=== PATIENT | male | born 1940 | race Caucasian/White ===

== ENCOUNTER 2022-01-23 13:17 | Emergency (ER) | payer MEDICARE, SELFPAY ==
[2022-01-23] VITALS (7 sets, daily range): BP systolic 96–150; BP diastolic 58–77; PULSE 63–70; RESP 11–18; TEMP 36.4–36.6; O2SAT 96–98; BMI 33.5
--- NOTE | 2022-01-23 13:31 | ECG_ITS ---
Test Reason : syncopy Blood Pressure : / mmHG Vent. Rate : 064 BPM Atrial Rate : 064 BPM P-R Int : 176 ms QRS Dur : 092 ms QT Int : 396 ms P-R-T Axes : 052 -31 003 degrees QTc Int : 408 ms Normal sinus rhythm Left axis deviation Abnormal ECG No previous ECGs available Referred By: Patricia Girard Electronically Signed By:Aldo Ascencio
--- NOTE | 2022-01-23 13:43 | ED_ITS ---
HPI - Syncope General Chief Complaint: Syncope Stated Complaint: LIGHT HEADED AFTER BICYCLE RIDE,FAINTED W/EMS Time Seen by Provider: 01/23/22 13:30 Source: patient and EMS Mode of arrival: EMS Limitations: no limitations History of Present Illness HPI narrative: 81 y/o male with history of DM on insulin, cataracts s/p recent surgery who presents to the ER via EMS with lightheadedness, dizziness and a brief syncopal episode after biking 23 miles today. He states he bikes 25-30 miles 3 times per week. He syncopized once 3 years ago in a similar circumstance but none since. He states he stops and takes a break every 5 miles and drinks fluids. Today he ate his usual breakfast before his ride but didn't eat lunch, which is normal for him. Glucose was 170 this morning. He states with about 1.5 miles to go be s tarted to feel lightheaded. When he completed his ride he got back to the car, was lightheaded, pale and dizzy. He laid down and his friends were pouring cold water on him and lifting his legs up. EMS was called and he was feeling better when they got there. He was going to decline transfer but when he sat up he syncopized. En route to the hospital he was nauseous. No chest pain, SOB, palpitations. He has never seen a chief payroll clerk and he has never had an ultrasound of his heart. MD complaint: loss of consciousness and felt faint Onset (ago): minute(s) -: minutes(s) Prodromal symptoms: lightheaded, diaphoresis and nausea/vomiting Witnessed: Yes - by EMS Context: during exertion Injuries sustained associated with event: none Current symptoms: back to baseline Treatments prior to arrival: IV fluids Related Data Home Medications Medication Instructions Recorded Confirmed ascorbic acid (vitamin C) 500 mg 500 mg PO DAILY 01/23/22 01/23/22 tablet (Vitamin C) bromfenac 0.07 % eye drops 1 drp ophthalmic (eye) BEDTIME 01/23/22 01/23/22 (Prolensa) calcium citrate 200 mg (950 mg) 400 mg PO BID 01/23/22 01/23/22 tablet gabapentin 300 mg capsule 1 cap PO TID 01/23/22 01/23/22 insulin glargine 100 unit/mL (3 42 unit subcut BEDTIME 01/23/22 01/23/22 mL) subcutaneous pen (Lantus Solostar U-100 Insulin) insulin lispro 100 unit/mL 0 sliding scale dose subcut QIDACHS 01/23/22 01/23/22 subcutaneous pen (Humalog KwikPen (U-100) Insulin) irbesartan 150 mg tablet 1 tab PO DAILY@1800 01/23/22 01/23/22 metformin 500 mg tablet 2 tab PO BID 01/23/22 01/23/22 omega 9-cvo-hgg-fish oil 1,200 mg 1 cap PO DAILY 01/23/22 01/23/22 (144 mg-216 mg) capsule (Fish Oil) omeprazole 20 mg capsule,delayed 1 cap PO DAILY 01/23/22 01/23/22 release simvastatin 40 mg tablet 1 tab PO BEDTIME 01/23/22 01/23/22 Allergies Allergy/AdvReac Type Severity Reaction Status Date / Time Unable to Assess Allergy Unverified 01/23/22 13:31 Review of Systems Review of Systems: Constitutional: No Fever, No Chills ENT/Mouth: No sore throat, No Rhinorrhea, No Swallowing Difficulty Eyes: No Eye Pain, No Swelling, No Redness Cardiovascular: No Chest Pain, No SOB, No Orthopnea, No Edema Respiratory: No Cough, No Sputum, No Wheezing, No dyspnea Gastrointestinal: No Nausea, No Vomiting, No Diarrhea, No abdominal Pain Genitourinary: No Dysuria, No Urinary Frequency, No Hematuria Musculoskeletal: No joint pain, No Myalgias Skin: No Skin Lesions, No rash Neuro: + Weakness, No Numbness, + Dizziness, No Headache Psych: No Anxiety/Panic, No Depression Heme/Lymph: No Bruising, No Lymphadenopathy Endocrine: No Polyuria, No Polydipsia PMFSH Social History Social History Patient Tobacco Use Status: Former Tobacco user Use of substances other than those prescribed or required for medical reasons: No Advance Directives: No Advance Directives Information Provided: Yes Physical Exam 2 Vital Signs: Vital Signs: Last Vital Signs Temp 97.7 F 01/23/22 16:09 Pulse 69 01/23/22 16:09 Resp 11 L 01/23/22 16:09 BP 150/77 H 01/23/22 16:09 Pulse Ox 97 01/23/22 16:09 O2 Del Method 01/23/22 16:09 BMI result Body Mass Index 33.5 Appearance: Alert. Oriented X3. No acute distress. Eyes: Pupils equal, round and reactive to light. ENT: Pharynx normal. Neck: Normal inspection. Neck supple. CVS: Normal heart rate and rhythm. +systolic murmur best appreciated LSB. Respiratory: No respiratory distress. Breath sounds normal. Abdomen: Obese, Soft and non-tender. +BS x4 Skin: Skin warm and dry. Normal skin color. Normal skin turgor. No rashes. Extremities: No lower extremity edema. No calf tenderness. Neuro: Oriented X 3. No motor deficit. No sensory deficit. Course Course Course Narrative: 81 y/o male with history of DM on insulin coming to the ER via EMS after exertional syncope. +murmur on exam, doubt critical given his degree of physical activity he is able to perform multiple times per week. Will check EKG, troponin, orthostatic VS, labs and give IVF. He is feeling better, back to baseline. Will monitor on telemetry. Reevaluation(s) Reevaluation #1: EKG ok. Orthostatic VS negative. Troponin 22. No chest pain. Will plan to repeat in 3 hours to assess delta. Labs showing SCr 1.6 and K 5.4, no baseline. Getting IVF. Recommending admission to the hospital for further management and monitoring. At this time patient is declining admission. Discussed the risks and benefits of admission vs going home, including collapse and potential cardiac . He expressed understanding. He will follow up with his PCP and Cardiol ogy. He agrees to stay for repeat troponin and to complete fluids. Case d/w Dr. Brock Reevaluation #2: Signed out to Patrizia QUINTANA. Plan for d/c home with plan to f/u with PCP and Cards. MDM - Syncope Medical Records Attestation: I reviewed the patient's medical records. Lab Data Attestation: I reviewed the patient's lab results. Result diagrams: 01/23/22 13:56 01/23/22 13:56 Labs: Lab Results 01/23/22 01/23/22 01/23/22 Range/Units 13:56 13:56 13:56 WBC 11.5 H (4.8-10.8) X10*3/uL RBC 4.53 L (4.60-5.80) X10*6/uL Hgb 10.8 L (14.0-18.0) g/dl Hct 35.5 L (42.0-52.0) % MCV 78.4 L (80.0-98.0) fL MCH 23.8 L (27.0-33.0) pg MCHC 30.4 L (31.0-36.0) g/dl RDW 16.2 H (11.0-16.0) % Plt Count 327 (160-400) X10*3/uL MPV 10.0 (9.4-12.4) fL Immature Gran % (Auto) 0.5 H (0.0-0.4) % Neut % (Auto) 83.8 H (45-73) % Lymph % (Auto) 8.9 L (20-40) % [place] % (Auto) 6.3 (2-11) % Eos % (Auto) 0.2 (0-4) % Baso % (Auto) 0.3 (0-2) % Lymph # (Auto) 1.0 L (1.2-4.9) X10*3/uL [place] # (Auto) 0.7 (0.1-1.2) X10*3/uL Eos # (Auto) 0.0 (0.0-0.4) X10*3/uL Baso # (Auto) 0.0 (0.0-0.2) X10*3/uL Abs Immat Gran (auto) 0.06 H (0.00-0.03) X10*3/uL Absolute Neuts (auto) 9.7 H (2.0-8.3) x10*3/uL Absolute Nucleated RBC 0.000 (0.0-0.012) X10*3/uL Nucleated RBC % (auto) 0.0 (0.0-0.2) /100WBC Sodium 137 (135-145) mmol/L Potassium 5.4 H (3.3-5.1) mmol/L Chloride 102 (96-108) mmol/L Carbon Dioxide 26 (22-29) mmol/L Anion Gap 14 (12-20) BUN 16 (9-16) mg/dL Creatinine 1.66 H (0.5-1.4) mg/dL Estim Creat Clear Calc 41.3 Estimated GFR 40 Random Glucose 185 H (60-115) mg/dL Calcium 9.8 (8.4-10.2) mg/dL Magnesium 2.4 (1.6-2.6) mg/dL Total Bilirubin 0.4 (0.0-1.0) mg/dL Direct Bilirubin 0.2 (0.0-0.5) mg/dL AST 15 (5-37) U/L ALT 14 (0-40) U/L Alkaline Phosphatase 63 (39-117) U/L Troponin I High Sens 22.3 (<3.5-35.0) ng/L Total Protein 7.0 (6.5-8.0) g/dL Albumin 4.1 (3.5-5.0) g/dL COVID-19 (APRYL) (Negative) COVID-19 Clin Com 01/23/22 Range/Units 15:42 WBC (4.8-10.8) X10*3/uL RBC (4.60-5.80) X10*6/uL Hgb (14.0-18.0) g/dl Hct (42.0-52.0) % MCV (80.0-98.0) fL MCH (27.0-33.0) pg MCHC (31.0-36.0) g/dl RDW (11.0-16.0) % Plt Count (160-400) X10*3/uL MPV (9.4-12.4) fL Immature Gran % (Auto) (0.0-0.4) % Neut % (Auto) (45-73) % Lymph % (Auto) (20-40) % [place] % (Auto) (2-11) % Eos % (Auto) (0-4) % Baso % (Auto) (0-2) % Lymph # (Auto) (1.2-4.9) X10*3/uL [place] # (Auto) (0.1-1.2) X10*3/uL Eos # (Auto) (0.0-0.4) X10*3/uL Baso # (Auto) (0.0-0.2) X10*3/uL Abs Immat Gran (auto) (0.00-0.03) X10*3/uL Absolute Neuts (auto) (2.0-8.3) x10*3/uL Absolute Nucleated RBC (0.0-0.012) X10*3/uL Nucleated RBC % (auto) (0.0-0.2) /100WBC Sodium (135-145) mmol/L Potassium (3.3-5.1) mmol/L Chloride (96-108) mmol/L Carbon Dioxide (22-29) mmol/L Anion Gap (12-20) BUN (9-16) mg/dL Creatinine (0.5-1.4) mg/dL Estim Creat Clear Calc Estimated GFR Random Glucose (60-115) mg/dL Calcium (8.4-10.2) mg/dL Magnesium (1.6-2.6) mg/dL Total Bilirubin (0.0-1.0) mg/dL Direct Bilirubin (0.0-0.5) mg/dL AST (5-37) U/L ALT (0-40) U/L Alkaline Phosphatase (39-117) U/L Troponin I High Sens (<3.5-35.0) ng/L Total Protein (6.5-8.0) g/dL Albumin (3.5-5.0) g/dL COVID-19 (APRYL) Negative (Negative) COVID-19 Clin Com See Note ECG Data Attestation: I personally reviewed and interpreted this ECG as follows: ECG interpretation date: 01/23/22 ECG interpretation time: 16:04 Prior ECG tracings: not available for review Interpretation: Normal sinus rhythm, HR 64 bpm, left axis deviation, normal DC interval, isolated T-wave inversion in lead III Critical Care Time Critical Care Time Critical Care Time: Yes Total Critical Care Time: 35 Attestation: I have personally provided critical care time exclusive of time spent on separately billable procedures. Time includes review of lab data, radiology results, discussion with consultants, and monitoring for potential de compensation. Intervention performed as documented. Discharge Plan Discharge Clinical Impression: Syncope Patient Disposition: Home, Self-Care Instructions: Syncope in Older Adults (ED) Additional Instructions: You declined admission to the hospital today. Recommend rest, staying hydrated and following up with your doctor as soon as possible. Recommend following up with Cardiology - your exam revealed a heart murmur. Name and number below. If you develop new or worsening symptoms call 911 or come back to the ER for further evaluation. Prescriptions: No Action metformin 500 mg tablet 2 tab PO BID simvastatin 40 mg tablet 1 tab PO BEDTIME ascorbic acid (vitamin C) [Vitamin C] 500 mg Tablet 500 mg PO DAILY gabapentin 300 mg capsule 1 cap PO TID omeprazole 20 mg capsule,delayed release(DR/EC) 1 cap PO DAILY irbesartan 150 mg tablet 1 tab PO DAILY@1800 calcium citrate 200 mg (950 mg) Tablet 400 mg PO BID insulin lispro [Humalog KwikPen Insulin] 100 unit/mL insulin pen 0 sliding scale dose subcut QIDACHS insulin glargine [Lantus Solostar U-100 Insulin] 100 unit/mL (3 mL) insulin pen 42 unit subcut BEDTIME omega 0-tqx-ndd-fish oil [Fish Oil] 1,200 (144-216) mg Capsule 1 cap PO DAILY Prolensa 0.07 % drops 1 drp ophthalmic (eye) BEDTIME Referrals: Aldo Ascencio MD [Physician] - (exertional syncope and LSB systolic murmur)
[2022-01-23 14:01] LABS: Basophils Percent Auto 0.3 % (0-2); Eosinophils Percent Auto 0.2 % (0-4); Hematocrit 35.5 % (42.0-52.0); Hemoglobin 10.8 g/dl (14.0-18.0); Imm Gran Abs Auto 0.06 X10*3/uL (0.00-0.03); Imm Gran Pct Auto 0.5 % (0.0-0.4); Lymphocytes Percent Auto 8.9 % (20-40); MANUAL DIFF FLAG NO; Mean Corpuscular HGB Conc 30.4 g/dl (31.0-36.0); Mean Corpuscular Hemoglobin 23.8 pg (27.0-33.0); Mean Corpuscular Volume 78.4 fL (80.0-98.0); Monocytes Absolute Auto 0.7 X10*3/uL (0.1-1.2); Monocytes Percent Auto 6.3 % (2-11); Neutrophils Absolute Auto 9.7 x10*3/uL (2.0-8.3); Neutrophils Percent Auto 83.8 % (45-73); Platelet Count 327 X10*3/uL (160-400); Red Blood Count 4.53 X10*6/uL (4.60-5.80); Red Cell Distribution Width 16.2 % (11.0-16.0); White Blood Count 11.5 X10*3/uL (4.8-10.8)
[2022-01-23] MEDS: 0.9 % Sodium Chloride 1,000 ML 999 ML IVCONT (14:20)
[2022-01-23 14:30] LABS: Alanine Aminotransferase 14 U/L (0-40); Albumin Level 4.1 g/dL (3.5-5.0); Alkaline Phosphatase 63 U/L (39-117); Anion Gap 14 (12-20); Aspartate Amino Transferase 15 U/L (5-37); Bilirubin Direct 0.2 mg/dL (0.0-0.5); Bilirubin Total 0.4 mg/dL (0.0-1.0); Blood Urea Nitrogen 16 mg/dL (9-16); Calcium 9.8 mg/dL (8.4-10.2); Carbon Dioxide 26 mmol/L (22-29); Chloride 102 mmol/L (96-108); Creatinine Clr Calc Pharmacy 41.3; Estimated Glomerular Filt Rate 40; Glucose Random 185 mg/dL (60-115); Magnesium 2.4 mg/dL (1.6-2.6); Potassium 5.4 mmol/L (3.3-5.1); Sodium 137 mmol/L (135-145)
[2022-01-23 14:33] LABS: Troponin-I High Sensitivity 22.3 ng/L (<3.5-35.0)
[2022-01-23 16:03] LABS: COVID-19 Test Negative (Negative); IDNOW Serial# 16C4AD1C
--- NOTE | 2022-01-23 16:27 | PHA.MEDREC ---
Pharmacy Consult ? Medication Reconciliation Pharmacy has completed the medication reconciliation. Patient reported all medications. Evi Norman, ZoëD
[2022-01-23 17:15] LABS: Troponin-I High Sensitivity 29.3 ng/L (<3.5-35.0)
== END 2022-01-23 17:46 | disposition home or self-care (01) ==
PROVIDERS: Physician Assistant; Emergency Provider Emergency Medicine
DX: R55 Syncope and collapse (principal); E11.9 Type 2 diabetes mellitus without complications; Z79.4 Long term (current) use of insulin; Z20.822 Contact with and (suspected) exposure to COVID-19
CPT/HCPCS: 36415; 80048; 80076; 83735; 84484; 85025; 87635; 93005; 96360; 99284; 99285